=== PATIENT | female | born 1980 | race Caucasian/White ===

== ENCOUNTER 2021-11-06 16:07 | Emergency (ER) | payer OTHER ==
[~2021-11-06 16:07] MED LIST: COLACE100 MG PO; GLUCOPHAGE500 MG PO; IBU600 MG PO; IRON325 M1 PO; NORCO 5-325 TA1 EACH PO; SYNTHROID25 MCG PO; VITAMIN C500 M1 PO
[2021-11-06 18:39] LABS: HEMOGLOBIN 11.9 gm/dl (12.3-15.3); RED BLOOD COUNT 4.67 M/UL (4.00-5.10); WHITE BLOOD COUNT 17.7 K/UL (4.5-11.0)
[2021-11-06] MEDS ORDERED: ZOFRAN ODT 4 MG4 MG SL (19:51)
[2021-11-06] MEDS ORDERED: IBU600 MG PO (19:51)
[2021-11-06] MEDS ORDERED: HYDROCODON-ACE1 EAC4 PO (19:51)
== END 2021-11-06 20:18 | disposition home or self-care (01) ==
LOC: ER1 16:07
PROVIDERS: Student in an Organized Health Care Education/Training Program
DX: N13.2 Hydronephrosis with renal and ureteral calculous obstruction (principal); E11.9 Type 2 diabetes mellitus without complications
CPT/HCPCS: 80053; 81001; 85025; 96374; 96375; 99284; J1885; J2270; J2405